=== PATIENT | male | born 1985 ===

== ENCOUNTER 2019-01-31 10:32 | Emergency (ER) | payer MEDICAID ==
[~2019-01-31] VITALS: Ht 165.1 cm; Wt 83.9 kg
[2019-01-31 11:06] VITALS: Ht 165.1 cm; Wt 83.9 kg
[2019-01-31 12:07] VITALS: BP 144/87
== END 2019-01-31 12:07 | disposition home or self-care (01) ==
LOC: ED 10:32
DX: N64.4 Mastodynia (principal); N63.0 Unspecified lump in unspecified breast